=== PATIENT | male | born 1975 | race Caucasian/White ===

== ENCOUNTER 2024-06-11 15:33 | Emergency (ER) | payer MEDICAID ==
[~2024-06-11] VITALS: Ht 167.6 cm; Wt 82.0 kg
[2024-06-11 15:38] VITALS: BP 172/112; PULSE 108; RESP 18; TEMP 98.5; O2SAT 98
[2024-06-11] MEDS ORDERED: ERYT1OIN6 LEFTEYE (18:21)
== END 2024-06-11 18:41 | disposition home or self-care (01) ==
LOC: ER 15:33
DX: H10.89 Other conjunctivitis (principal)
CPT/HCPCS: 99283